=== PATIENT | female | born 2000 | race African-American/Black ===

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

== ENCOUNTER 2023-01-14 18:57 | Emergency (ER) | payer BC, OTHER ==
[~2023-01-14] VITALS: Ht 162.6 cm; Wt 123.0 kg
[2023-01-14 19:03] VITALS: O2SAT 98
[2023-01-14 19:36] LABS: BASOPHILS % 0.3 % (0.0-2.0); DIFFERENTIAL COMMENT 0; EOSINOPHILS % 0.3 % (0.0-5.0); HEMATOCRIT. 40.5 % (36.0-48.0); HEMOGLOBIN. 13.1 g/dL (12.0-16.0); LYMPHOCYTES % 14.3 % (20.0-50.0); MEAN CORPUSCULAR HEMOGLOBIN 25.7 pg (28.0-32.0); MEAN CORPUSCULAR HGB CONC 32.4 g/dL (31.0-37.0); MEAN CORPUSCULAR VOLUME 79.3 fL (81.0-99.0); MEAN PLATELET VOLUME 9.3 fl (7.4-10.4); MONOCYTES % 5.9 % (2.0-8.0); NEUTROPHILS % 79.2 % (40.0-76.0); PLATELET 303 x1000/uL (130-400); RED BLOOD CELL COUNT 5.11 mill/uL (4.2-5.4); RED CELL DISTRIBUTION WIDTH 14.1 % (11.6-14.6); WHITE BLOOD COUNT 13.5 x1000/uL (4.5-11.0)
[2023-01-14 19:40] LABS: CHLORIDE 107 mEq/L (98-107); INDEX HEMOLYSI 1 (1-3); INDEX ICTERIC 1 (1-4); INDEX LIPEMIC 1 (1-3); POTASSIUM 3.9 mEq/L (3.5-5.1); SODIUM 139 mEq/L (136-145)
[2023-01-14 19:49] LABS: ALANINE AMINOTRANSFERASE 26 IU/L (13-61); ALBUMIN 3.7 g/dL (3.4-5.0); ASPARTATE AMINOTRANSFERASE 14 IU/L (15-37); BILIRUBIN TOTAL 0.3 mg/dL (0.1-1.0); CALCIUM 8.8 mg/dL (8.5-10.1); CARBON DIOXIDE 26 mEq/L (21-32); CREATININE 0.7 mg/dL (0.6-1.3); GLUCOSE 97 mg/dL (70-105); TROPONIN I HIGH SENSITIVITY 4 ng/L (<54); UREA NITROGEN BLOOD 11 mg/dL (7-21)
[2023-01-14] MEDS ORDERED: ONDANSETRON HCL 4MG TABLET PO NR (21:30)
[2023-01-14] MEDS ORDERED: ACETAMINOPHEN 325MG TABLET PO NR (21:45)
[2023-01-14 23:07] VITALS: BP 136/76; PULSE 94; RESP 20; TEMP 98.2
== END 2023-01-14 23:08 | disposition home or self-care (01) ==
LOC: ER 18:57
DX: R11.0 Nausea (principal); R51.9 Headache, unspecified
CPT/HCPCS: 99284; 80053; 85025; 84484; 36415; 93005; Q0162